=== PATIENT | female | born 1995 | race Caucasian/White ===

== ENCOUNTER 2018-10-01 03:33 | Emergency (ER) | payer MEDICAID, OTHER ==
[~2018-10-01] VITALS: Ht 152.4 cm; Wt 60.0 kg
[2018-10-01 03:37] VITALS: Ht 152.4 cm; Wt 60.0 kg
[2018-10-01] MEDS ORDERED: PRED20TA PO (04:11)
[2018-10-01] MEDS ORDERED: AMOX500C2 PO (04:11)
--- NOTE | 2018-10-01 04:13 | ERD ---
ER Documentation Chief Complaint Chief Complaint R side of her throat hurts x 1day HPI 22-year-old female presents with sore throat that began today. No fever. Has pain with swallowing but tolerating oral intake. No cough. No nausea or vomiting. Has not taken any medication for her symptoms. ROS All systems reviewed and are negative except as per history of present illness. Medications Home Meds Active Scripts Prednisone* (Prednisone*) 20 Mg Tab, 60 MG PO DAILY for 4 Days, TAB Prov:RAMÓN TAY PA-C 10/01/18 Amoxicillin* (Amoxicillin*) 500 Mg Cap, 500 MG PO TID for 7 Days, CAP Prov:RAMÓN TAY PA-C 10/01/18 Allergies Allergies: Coded Allergies: No Known Allergy (Unverified , 10/01/18) PMhx/Soc Medical and Surgical Hx: pt denies Medical Hx, pt denies Surgical Hx Hx Alcohol Use: No Hx Substance Use: No Hx Tobacco Use: No Smoking Status: Never smoker FmHx Family History: No diabetes Physical Exam Vitals Vital Signs Date Temp Pulse Resp B/P (MAP) Pulse Ox O2 O2 Flow FiO2 Time Delivery Rate 10/01/18 98.1 101 20 127/71 98 03:37 (89) Physical Exam Const: No acute distress Head: Atraumatic Eyes: Normal Conjunctiva ENT: Bilateral tonsillar erythema and edema with scant exudates, uvula midline, no kissing tonsils. Neck: Full range of motion. No meningismus. Resp: Clear to auscultation bilaterally Cardio: Regular rate and rhythm, no murmurs Results 24 hrs Current Medications Medications Dose Sig/Gris Start Time Status Last (Trade) Ordered Route PRN Stop Time Admin Dose Reason Admin Amoxicillin 500 mg ONCE ONCE 10/01/18 PO 04:30 (Amoxicillin) 10/01/18 04:31 Procedures/MDM Patient presents with what is likely strep throat. Although she is afebrile she has swollen tonsils with exudates. Low suspicion for peritonsillar abscess. She was given first dose of amoxicillin here prescription for prednisone and amoxicillin. Patient counseled regarding my diagnostic impression and care susan n. Prior to discharge all questions answered. Pt agrees with treatment plan and understands strict return precautions. Pt is instructed to follow up with primary care provider within 24-48 hours. Precautionary instructions provided including instructions to return to the ER if not improving or for any worsening or changing symptoms or concerns. Departure Diagnosis: Primary Impression: Pharyngitis Condition: Stable Patient Instructions: Strep Throat Additional Instructions: Call your primary care doctor TOMORROW for an appointment during the next 1-2 days.See the doctor sooner or return here if your condition worsens before your appointment time. RAMÓN TAY PA-C Oct 01, 2018 04:13
[2018-10-01] MEDS ORDERED: AMOXICILLIN 500 MG CAP PO ONE (04:30)
[2018-10-01 04:43] VITALS: BP 118/72; PULSE 88; RESP 16
== END 2018-10-01 04:48 | disposition home or self-care (01) ==
LOC: FTE 03:33
DX: J02.9 Acute pharyngitis, unspecified (principal)
CPT/HCPCS: Z7502; Z7610; 99283